=== PATIENT | female | born 1945 | race Caucasian/White ===

== ENCOUNTER → 2017-11-30 11:20 | Outpatient (CLI) | payer BC, SELFPAY ==
--- NOTE | 2017-11-30 11:30 | DI.US.S_ITS ---
PROCEDURE: US PERIPH VENOUS LOW EXTREM RT INDICATIONS: PAIN IN RIGHT LEG TECHNIQUE: Real-time imaging, as well as color and pulse Doppler interrogation, were performed of the lower extremity deep veins from the inguinal ligament to the popliteal fossa. COMPARISON: None. FINDINGS: The deep veins are normally compressible, and free of intraluminal thrombus. Color and pulse Doppler demonstrate normal phasic intraluminal flow. There is normal augmentation response to distal compression maneuver. IMPRESSION: Normal, no DVT found. Dictated by: Christofer Artis M.D. on 11/30/2017 at 12:31 Approved by: Christofer Artis M.D. on 11/30/2017 at 12:31
== END ==
PROVIDERS: Visit Provider Internal Medicine
DX: M79.604 Pain in right leg (principal)
CPT/HCPCS: 93971